=== PATIENT | female | born 1960 | race Caucasian/White ===

== ENCOUNTER 2016-06-20 10:31 | Emergency (ER) | payer OTHER ==
--- NOTE | 2016-06-20 10:43 | ER Document Report ---
ED Medical Screen (RME) - General Stated Complaint: FELL/KNEE PAIN Time seen by provider: 10:40 Mode of Arrival: Ambulatory Information source: Patient Notes: 56-year-old female tripped over a stool at work today and fell on both of her knees. She has not worried about the knee. Her right knee hurts more than the left. She cannot put her on a right knee and is scared. Offered her Motrin and she does not want it. - Related Data Allergies/Adverse Reactions: No Known Allergies Allergy (Verified 06/20/16 10:41) Physical Exam - Vital signs Vitals: Temp Pulse Resp BP Pulse Ox 97.7 F 87 16 150/81 H 100 06/20/16 10:35 06/20/16 10:35 06/20/16 10:35 06/20/16 10:35 06/20/16 10:35 Course - Vital Signs Vital signs: Temp Pulse Resp BP Pulse Ox 97.7 F 87 16 150/81 H 100 06/20/16 10:35 06/20/16 10:35 06/20/16 10:35 06/20/16 10:35 06/20/16 10:35
--- NOTE | 2016-06-20 11:09 | ER Document Report ---
ED General - General Chief Complaint: Knee Injury Stated Complaint: FELL/KNEE PAIN Mode of Arrival: Wheelchair Information source: Patient Notes: 56-year-old female presents after a fall at work. Patient landed on her knee. Was able to ambulate pain TRAVEL OUTSIDE OF THE [place] IN LAST 30 DAYS: No - HPI Onset: Just prior to arrival Onset/Duration: Sudden Quality of pain: Sharp Severity: Moderate Pain Level: 2 Associated symptoms: Body/muscle aches Exacerbated by: Movement Relieved by: Denies Similar symptoms previously: No Recently seen / treated by doctor: No - Related Data Allergies/Adverse Reactions: No Known Allergies Allergy (Verified 06/20/16 10:41) Past Medical History - General Information source: Patient - Social History Smoking Status: Current Every Day Smoker Cigarette use (# per day): Yes Chew tobacco use (# tins/day): No Smoking Education Provided: No Frequency of alcohol use: None Drug Abuse: None Family History: Reviewed & Not Pertinent Patient has suicidal ideation: No Patient has homicidal ideation: No Renal/ Medical History: Denies: Hx Peritoneal Dialysis Review of Systems - Review of Systems Notes: REVIEW OF SYSTEMS: CONSTITUTIONAL : Denies fever, chills, or sweats. Denies recent illness. EENT: Denies eye, ear, throat, or mouth pain or symptoms. Denies nasal or sinus congestion or discharge. Denies throat, tongue, or mouth swelling or difficulty swallowing. CARDIOVASCULAR: Denies chest pain. Denies palpitations or racing or irregular heart beat. Denies ankle edema. RESPIRATORY: Denies cough, cold, or chest congestion. Denies shortness of breath, difficulty breathing, or wheezing. GASTROINTESTINAL: Denies abdominal pain or distention. Denies nausea, vomiting , or diarrhea. Denies blood in vomitus, stools, or per rectum. Denies black, tarry stools. Denies constipation. GENITOURINARY: Denies difficulty urinating, painful urination, burning, frequency, blood in urine, or discharge. FEMALE GENITOURINARY: Denies vaginal bleeding, heavy or abnormal periods, irregular periods. Denies vaginal discharge or odor. MUSCULOSKELETAL: Admits to right knee pain SKIN: Denies rash, lesions or sores. HEMATOLOGIC : Denies easy bruising or bleeding. LYMPHATIC: Denies swollen, enlarged glands. NEUROLOGICAL: Denies confusion or altered mental status. Denies passing out or loss of consciousness. Denies dizziness or lightheadedness. Denies headache. Denies weakness or paralysis or loss of use of either side. Denies problems with gait or speech. Denies sensory loss, numbness, or tingling. Denies seizures. PSYCHIATRIC: Denies anxiety or stress. Denies depression, suicidal ideation, or homicidal ideation. ALL OTHER SYSTEMS REVIEWED AND NEGATIVE. Dictation was performed using [employer] voice recognition software PHYSICAL EXAMINATION: GENERAL: Well-appearing, well-nourished and in no acute distress. HEAD: Atraumatic, normocephalic. EYES: Pupils equal round and reactive to light, extraocular movements intact, conjunctiva are normal. ENT: Nares patent, oropharynx clear without exudates. Moist mucous membranes. NECK: Normal range of motion, supple without lymphadenopathy LUNGS: Breath sounds clear to auscultation bilaterally and equal. No wheezes rales or rhonchi. HEART: Regular rate and rhythm without murmurs ABDOMEN: Soft, nontender, nondistended abdomen. No guarding, no rebound. No masses appreciated. Female : deferred Musculoskeletal: Limited range of motion of the right knee it is straightened, tender on palpation of the patella NEUROLOGICAL: Cranial nerves grossly intact. Normal speech, normal gait. Normal sensory, motor exams PSYCH: Normal mood, normal affect. SKIN: Warm, Dry, normal turgor, no rashes or lesions noted. Physical Exam - Vital signs Vitals: Temp Pulse Resp BP Pulse Ox 97.7 F 87 16 150/81 H 100 06/20/16 10:35 06/20/16 10:35 06/20/16 10:35 06/20/16 10:35 06/20/16 10:35 Course - Re-evaluation Re-evalutation: 06/20/16 15:31 X-rays consistent with a comminuted transverse fracture of the patella, I expect patient to require surgery as a result, we do not have ordered to cover today, patient will be placed in immobilizer and will be given follow-up with orthopedics for evaluation and care. Patient refuses pain medication in the emergency department After performing a Medical Screening Examination, I estimate there is LOW risk for INTRACRANIAL HEMORRHAGE, UNSTABLE SPINE FRACTURE, CENTRAL CORD SYNDROME, CAUDA EQUINA, THORACIC AORTIC DISSECTION, PNEUMOTHORAX, PERFORATED BOWEL, RUPTURED ABDOMINAL AORTIC ANEURYSM, ACUTE TENDON RUPTURE, COMPARTMENT SYNDROME, or OPEN FRACTURE, thus I consider the discharge disposition reasonable. Also, there is no evidence or peritonitis, sepsis, or toxicity. The patient and I have discussed the diagnosis and risks, and we agree with discharging home to follow-up with their primary doctor with the understanding that symptoms and presentations can change. We also discussed returning to the Emergency Department immediately if new or worsening symptoms occur. We have discussed the symptoms which are most concerning (e.g., bloody stool, fever, changing or worsening pain, vomiting) that necessitate immediate return. - Vital Signs Vital signs: Temp Pulse Resp BP Pulse Ox 97.7 F 87 16 150/81 H 100 06/20/16 10:35 06/20/16 10:35 06/20/16 10:35 06/20/16 10:35 06/20/16 10:35 - Diagnostic Test Radiology reviewed: Image reviewed, Reports reviewed Discharge - Discharge Clinical Impression: Transverse fracture of patella Qualifiers: Encounter type: initial encounter Fracture type: closed Fracture alignment: nondisplaced Laterality: right Qualified Code(s): S82.034A - Nondisplaced transverse fracture of right patella, initial encounter for closed fracture Knee pain, acute Qualifiers: Laterality: right Qualified Code(s): M25.561 - Pain in right knee Condition: Stable Disposition: HOME, SELF-CARE Instructions: Knee Immobilizing Splint ([facility]), Use of Crutches ([facility]) Prescriptions: Naproxen 500 mg PO BID #60 tablet Tramadol HCl [Ultram] 50 mg PO Q8 #30 tablet Referrals: HERMAN PEREZ MD [ACTIVE STAFF] - Follow up in 3-5 days
[2016-06-20] MEDS ORDERED: KETOROLAC TROMETHAMINE 60 MG/2 ML SDV IM ONE (11:11)
[2016-06-20 11:42] VITALS: BP 153/81
== END 2016-06-20 11:41 | disposition home or self-care (01) ==
LOC: ER 10:31
DX: S82.034A Nondisplaced transverse fracture of right patella, initial encounter for closed fracture (principal); M25.561 Pain in right knee; M79.1 Myalgia; F17.210 Nicotine dependence, cigarettes, uncomplicated; W19.XXXA Unspecified fall, initial encounter; Y92.69 Other specified industrial and construction area as the place of occurrence of the external cause; Y99.0 Civilian activity done for income or pay
CPT/HCPCS: 99283; 96372; 73560; L1830; J1885

== ENCOUNTER 2017-07-13 15:17 | Emergency (ER) | payer SELFPAY ==
--- NOTE | 2017-07-13 16:44 | ER Document Report ---
ED General - General Chief Complaint: Redness of Eye Stated Complaint: EYE PROBLEM Time Seen by Provider: 07/13/17 16:38 Notes: 57-year-old female here with complaints of redness and itching and watering to the right eye ongoing for the past 3 days. Today she has started to have some yellow discharge. Vision is normal. Nothing makes his symptoms worse. She has tried [id number] eyedrops without much relief. No known sick contacts. TRAVEL OUTSIDE OF THE [place] IN LAST 30 DAYS: No - Related Data Allergies/Adverse Reactions: No Known Allergies Allergy (Verified 07/13/17 15:18) Past Medical History - Social History Smoking Status: Unknown if Ever Smoked Family History: Reviewed & Not Pertinent Renal/ Medical History: Denies: Hx Peritoneal Dialysis Review of Systems - Review of Systems Notes: See history of present illness for pertinent positive review of systems; otherwise all review of systems have been reviewed and are negative Physical Exam - Vital signs Vitals: Temp Pulse Resp BP Pulse Ox 98.3 F 77 18 145/73 H 99 07/13/17 15:40 07/13/17 15:40 07/13/17 15:40 07/13/17 15:40 07/13/17 15:40 - Notes Notes: PHYSICAL EXAMINATION: GENERAL: Well-appearing and in no acute distress. HEAD: Atraumatic, normocephalic. EYES: Pupils equal round and reactive to light, extraocular movements intact, sclera anicteric, conjunctiva on right side with mild to moderate conjunctival injection but no discharge visualized. ENT: nares patent, oropharynx clear without exudates. Moist mucous membranes. NECK: Normal range of motion, supple without lymphadenopathy LUNGS: CTAB and equal. No wheezes rales or rhonchi. HEART: Regular rate and rhythm without murmurs ABDOMEN: Soft, no tenderness. No guarding, no rebound EXTREMITIES: Normal range of motion, no pitting edema. No cyanosis. NEUROLOGICAL: Cranial nerves grossly intact. Normal sensory/motor exams. PSYCH: Normal mood, normal affect. SKIN: Warm, Dry, normal turgor, no rashes or lesions noted Course - Re-evaluation Re-evalutation: 07/13/17 16:44 MEDICAL DECISION MAKING: Concern for conjunctivitis Will describe antibiotic eyedrops Polytrim Instructed follow-up PCP and/or an pest controller next day or few Patient understands and agrees to the plan of care - Vital Signs Vital signs: Temp Pulse Resp BP Pulse Ox 98.3 F 77 18 145/73 H 99 07/13/17 15:40 07/13/17 15:40 07/13/17 15:40 07/13/17 15:40 07/13/17 15:40 Discharge - Discharge Clinical Impression: Conjunctivitis Qualifiers: Conjunctivitis type: other Laterality: right Qualified Code(s): H10.89 - Other conjunctivitis Condition: Good Disposition: HOME, SELF-CARE Additional Instructions: Use antibiotic eyedrops for 5 days and do not skip any doses. You were seen in the emergency department at [facility]. Please followup with your primary physician in the next few days for further management/evaluation. Please return to the emergency department for worsening of symptoms or any symptom that you deem to be concerning or life-threatening. Thank you for allowing us to be part of your care. Prescriptions: Polymyxin B Sulf/Trimethoprim [Polytrim Eye Drops] 1 drop OD Q3H #10 ml
[2017-07-13 17:12] VITALS: BP 143/89
== END 2017-07-13 17:21 | disposition home or self-care (01) ==
LOC: ER 15:17
DX: H10.9 Unspecified conjunctivitis (principal)
CPT/HCPCS: 99282